=== PATIENT | male | born 1980 | race Caucasian/White ===

== ENCOUNTER 2018-10-11 15:44 | Emergency (ER) | payer OTHER, SELFPAY ==
[2018-10-11 16:00] VITALS: BP 106/69; PULSE 67; RESP 18; TEMP 36.6; O2SAT 97; BMI 21.7
--- NOTE | 2018-10-11 16:11 | DI.CT.S_ITS ---
PROCEDURE: CT HEAD/BRAIN WO CON INDICATIONS: blunt injury to forehead, c/o headaches and laceration TECHNIQUE: Noncontrast 4.5 mm thick angled axial sections acquired from the foramen magnum to the vertex, with coronal and sagittal reformats. For radiation dose reduction, the following was used: automated exposure control, adjustment of mA and/or kV according to patient size. COMPARISON: None. FINDINGS: Image quality: Excellent. CSF spaces: Basal cisterns are patent. No extra-axial fluid collections. Ventricles are normal in size and shape. Brain: No midline shift. No intracranial masses or hemorrhage. De [place]-white matter interface is normal. Skull and face: Calvarium and visualized facial bones are intact, without suspicious lesions. No acute fracture. Minimal superficial scalp contusion involving the forehead, slightly right of midline. Sinuses: Visualized sinuses and mastoids are clear. IMPRESSION: CT head without acute intracranial abnormalities or calvarial fractures. Dictated by: Doug Gilman M.D. on 10/11/2018 at 16:45 Approved by: Doug Gilman M.D. on 10/11/2018 at 16:46
--- NOTE | 2018-10-11 16:15 | ED_ITS ---
HPI - Head Injury General Chief complaint: Head Injury Stated complaint: LACERATION OF THE HEAD Time Seen by Provider: 10/11/18 16:09 Source: patient Mode of arrival: ambulatory Limitations: no limitations History of Present Illness HPI Narrative: This patient was working on a project at home. He was using a table saw, without the guard in place for the blade. A 2-1/2 inch block of wood flew off the saw blade after the cut, striking him in the forehead. Has a forehead laceration. He denies visual changes. He denies injuries to the eyes, nose or mouth. He had no altered mental status or LOC. He has had no bleeding from the ears, nose or mouth. He has no neck pain. He has bandaged the site, himself. There is no current bleeding. His last tetanus is up-to-date. He is healthy without chronic medical problems. Related Data Previous Rx's Medication Instructions Recorded citalopram 20 mg PO QDAY #90 tab 12/31/16 Allergies Allergy/AdvReac Type Severity Reaction Status Date / Time No Known Allergies Allergy Uncoded 10/11/18 16:11 Review of Systems Review of Systems ROS Unobtainable: All systems reviewed & are unremarkable except as noted in HPI and below Constitutional Denies chills, Denies lethargy and Denies weakness Eyes Denies change in vision, Denies eye discharge, Denies irritation and Denies loss of vision ENT Ears, Nose, Mouth, and Throat: Denies change in voice, Denies vertigo, Denies dizziness, Denies neck pain and Denies sore throat Musculoskeletal Denies neck pain Integumentary/Breasts Reports as per HPI, Denies erythema, Denies rash and Reports wounds Neurologic Denies vertigo, Denies dizziness, Denies loss of vision and Denies weakness PFSH Medical History No acute medical problems (Acute) No significant past surgical history (Acute) Social History Smoking Status: Never smoker Social History Smoking Status: Never smoker Exam Initial Vital Signs Initial Vital Signs: Vital Signs Temperature 97.9 F 10/11/18 16:00 Pulse Rate 67 10/11/18 16:00 Respiratory Rate 18 10/11/18 16:00 Blood Pressure 106/69 10/11/18 16:00 Pulse Oximetry 97 10/11/18 16:00 Const General: cooperative and well developed Nutritional Appearance: well nourished Orientation: alert, awake, oriented x3 and not confused [facility] Head: normocephalic, laceration (1.5 centimeter Vertical right forehead laceration, no foreign bodies. ), scalp tenderness and other (Laceration penetrates through to the skull. No bony injury.) Ears: external ears normal and TM's normal bilaterally Nose: external nose normal and No nasal discharge Face and sinus: face symmetric and No dry mucous membranes Mouth: oral mucosae normal and moist mucous membranes Teeth and gingiva: dentition normal Throat: tonsils normal and uvula midline Psych Appearance: grossly normal and well kempt Mental Status: mental status grossly normal Procedures Laceration Repair Laceration 1: Site: scalp Side (If applicable): right Size (cm): 1.5 Description: linear Depth: simple, single layer Local Anesthetic: lidocaine 2% Amount of anesthesia used (mL): 2.5 Pre-repair: wound explored and irrigated extensively Skin layer closed with: nylon Size (cm): 5-0 Technique: simple, interrupted Course Orders Ordered: ED Orders 10/11/18 16:11 CT head/brain wo con Stat Discontinued Medications Acetaminophen (Tylenol) 975 mg PO NOW ONE Stop: 10/11/18 16:55 Last Admin: 10/11/18 16:56 Dose: 975 mg Vital Signs - 8 hr 10/11/18 16:00 10/11/18 18:16 Temperature 97.9 F Pulse Rate 67 56 L Respiratory Rate 18 12 Blood Pressure 106/69 115/69 Pulse Oximetry 97 98 MDM - Head Injury Imaging Data CT scan - head: Radiologist's impression: [address] [address] [address] Scan Report Signed Patient: Everett Jarvis#: [id number] : 1980Acct:[id number] Age/Sex: 38 / MDate of Service: 10/11/18 Loc: ED Accession Number: [id number] Procedure: CT head/brain wo con Ordering Provider: Josesito Hunter M.D. PROCEDURE: CT HEAD/BRAIN WO CON INDICATIONS: blunt injury to forehead, c/o headaches and laceration TECHNIQUE: Noncontrast 4.5 mm thick angled axial sections acquired from the foramen magnum to the vertex, with coronal and sagittal reformats. For radiation dose reduction, the following was used: automated exposure control, adjustment of mA and/or kV according to patient size. COMPARISON: None. FINDINGS: Image quality: Excellent. CSF spaces: Basal cisterns are patent. No extra-axial fluid collections. Ventricles are normal in size and shape. Brain: No midline shift. No intracranial masses or hemorrhage. [place]-white matter interface is normal. Skull and face: Calvarium and visualized facial bones are intact, without suspicious lesions. No acute fracture. Minimal superficial scalp contusion involving the forehead, slightly right of midline. Sinuses: Visualized sinuses and mastoids are clear. IMPRESSION: CT head without acute intracranial abnormalities or calvarial fractures. Dictated by: Doug Gilman M.D. on 10/11/2018 at 16:45 Approved by: Doug Gilman M.D. on 10/11/2018 at 16:46 Discharge Plan Departure Patient Disposition: Home Clinical Impression: Forehead laceration Qualifiers: Encounter type: initial encounter Qualified Code(s): S01.81XA - Laceration without foreign body of other part of head, initial encounter Discharge Date/Time: 10/11/18 18:16 Interventions: ED Discharge Assessment Last Done: 10/11/18 18:16 Instructions: DI for Laceration Repair Activity Restrictions/Additional Instructions: Keep the bandage in place until tomorrow. At the bandage comes off he may shower, bathe normally. Take Tylenol or Advil as needed for pain. Follow-up with her doctor in 1 week for suture removal. Return to ER as needed. Prescriptions: No Action citalopram 20 MG tablet 20 mg PO QDAY Qty: 90 RF: 3 Referrals: Krystian Nava MD [Primary Care Provider] - Stand Alone Forms: Work Release Note
[2018-10-11] MEDS: ACETAMINOPHEN 325 MG TABLET 975 MG PO (16:56)
[2018-10-11 18:16] VITALS: BP 115/69; PULSE 56; RESP 12; O2SAT 98
== END 2018-10-11 18:16 | disposition home or self-care (01) ==
PROVIDERS: Emergency Provider Emergency Medicine; PCP Family Medicine
DX: S01.01XA Laceration without foreign body of scalp, initial encounter (principal); W31.2XXA Contact with powered woodworking and forming machines, initial encounter; Y92.009 Unspecified place in unspecified non-institutional (private) residence as the place of occurrence of the external cause
CPT/HCPCS: 12001; 70450; 99283; 99284

== ENCOUNTER → 2021-05-03 11:03 | Outpatient (CLI) | payer OTHER, SELFPAY ==
[2021-05-03 20:10] LABS: Add Manual Diff / Slide Review NO; Basophils Absolute Auto 0 /uL (0-100); Basophils Percent Auto 0.4 % (0-2); Eosinophils Absolute Auto 0 /uL (0-450); Eosinophils Percent Auto 0.6 % (2-4); Hematocrit 44.3 % (41-53); Hemoglobin 15.1 g/dL (13.5-17.5); Lymphocytes Absolute Auto 1200 /uL (1100-4500); Lymphocytes Percent Auto 22.6 % (25-40); Mean Corpuscular Hemoglobin 31.8 PG (26-34); Mean Corpuscular Volume 93.3 fL (80-100); Monocytes Absolute Auto 500 /uL (0-900); Monocytes Percent Auto 10.6 % (3-14); Neutrophils Absolute Auto 3400 /uL (1500-7000); Neutrophils Percent Auto 65.8 % (50-75); Platelet Count 306 X10^3/uL (150-400); Red Blood Cell Count 4.75 X10^6/uL (4.5-5.9); Red Cell Distribution Width 12.8 % (11.6-14.8); White Blood Cell Count 5.1 X10^3/uL (4.5-11.0)
[2021-05-03 20:12] LABS: Alanine Aminotransferase 19 IU/L (<50); Albumin 4.5 g/dL (3.5-5.0); Albumin Globulin Ratio 1.6 (1.0-2.8); Alkaline Phosphatase 60 U/L (38-126); Aspartate Aminotransferase 34 IU/L (17-59); BUN Creatinine Ratio 10.5 (6-22); Bilirubin Total 0.8 mg/dL (0.2-1.3); Blood Urea Nitrogen 8 mg/dL (9-20); Calcium 9.6 mg/dL (8.4-10.2); Carbon Dioxide 34 mmol/L (22-32); Chloride 103 mmol/L (98-107); Estimated Glomerular Filt Rate > 60.0 mL/min (>60); Globulin 2.9 g/dL (1.7-4.1); Glucose 91 mg/dL (70-100); HEMOLYSIS < 15 (0-50); Potassium 4.6 mmol/L (3.4-5.1); Sodium 141 mmol/L (137-145); Total Protein 7.4 g/dL (6.3-8.2)
[2021-05-03 20:24] LABS: Rheumatoid Factor < 8.6 IU/mL (<12.0)
[2021-05-03 20:38] LABS: Erythrocyte Sedimentation Rate 3 MM/HR (0-15)
[2021-05-03 20:42] LABS: TSH w/ Reflex to FT4 1.24 uIU/mL (0.47-4.68)
== END ==
PROVIDERS: PCP Family Medicine; Visit Provider Family Medicine
DX: Q87.40 Marfan syndrome, unspecified (principal); M19.90 Unspecified osteoarthritis, unspecified site
CPT/HCPCS: 80053; 84443; 85025; 85651; 86430

== ENCOUNTER → 2021-08-27 08:41 | Outpatient (CLI) | payer OTHER, SELFPAY ==
[2021-08-28] LABS: COVID19 - ORCAS (NP or Nasal) POSITIVE (Negative)
== END ==
PROVIDERS: PCP Family Medicine; Referring Provider Physician Assistant; Visit Provider Physician Assistant
DX: U07.1 COVID-19 (principal); Z20.822 Contact with and (suspected) exposure to COVID-19
CPT/HCPCS: U0003

== ENCOUNTER → 2022-10-09 15:55 | Outpatient (CLI) | payer OTHER, SELFPAY | PROVIDERS: PCP Physician Assistant Medical; Visit Provider Physician Assistant Medical | DX: N50.819 Testicular pain, unspecified (principal) | CPT/HCPCS: 87086; 87491; 87563; 87591; 87798 ==

== ENCOUNTER 2022-10-12 00:46 | Emergency (ER) | payer OTHER, SELFPAY ==
[2022-10-12 01:04] VITALS: BP 132/81; PULSE 63; RESP 14; TEMP 36.7; O2SAT 98; BMI 22.4
--- NOTE | 2022-10-12 01:12 | DI.US.S_ITS ---
PROCEDURE: US SCROTUM INDICATIONS: TESTICULAR PAIN TECHNIQUE: Real-time scanning was performed of the scrotum and testicles, with image documentation. Color and pulse Doppler interrogation was performed of both testicles. COMPARISON: None. FINDINGS: Right: Testicle is normal in size at 3.6 x 2.5 x 3.2 cm, and homogenous in echotexture. Epididymis is normal in overall size and morphology. No varicoceles. Mild hydrocele. Overlying scrotal skin is normal in thickness. Left: Testicle is normal in size at 3.8 x 2.2 x 3.2 cm, and homogeneous in echotexture. Epididymis is normal in overall size and morphology. No varicoceles. Mild hydrocele. Overlying scrotal skin is normal in thickness. Doppler: Color and pulse Doppler demonstrate normal and symmetric arterial flow in both testicles. IMPRESSION: No testicular torsion at time of exam. Intermittent torsion cannot be excluded. Bilateral hydroceles. The above findings are concordant with preliminary report. Dictated by: Cecilia Lainez M.D. on 10/12/2022 at 8:04 Approved by: Cecilia Lainez M.D. on 10/12/2022 at 8:04
--- NOTE | 2022-10-12 01:12 | ED_ITS ---
HPI - Male Genitourinary General Chief complaint: Urogenital-Male Stated complaint: testicular pain Lt. Time Seen by Provider: 10/12/22 00:54 Source: patient Mode of arrival: Ambulatory History of Present Illness HPI Narrative: 42-year-old male nonsmoker with noncontributory chronic medical history presents for evaluation of episodic left testicle pain which has been occurring off and on for about the past month. He denies any trauma or injury and has no difficulty with urination. He is sexually active. He denies any systemic complaints such as fever, chills nor nausea or vomiting. He had been seen by his primary care provider earlier in the week and was started on ciprofloxacin to treat presumed epididymitis. Related Data Previous Rx's Medication Instructions Recorded ciprofloxacin HCl 500 mg tablet 500 mg PO BID #14 tabs 10/09/22 (Cipro) Allergies Allergy/AdvReac Type Severity Reaction Status Date / Time No Known Allergies Allergy Uncoded 10/11/18 16:11 Review of Systems Review of Systems Narrative: GENERAL: Denies chills, fatigue, malaise, fever, sweats. HEENT: Denies sinus pain, ear pain, sore throat, difficulty swallowing, dizziness. RESPIRATORY: Denies dyspnea, cough, wheezing, hemoptysis, sputum. CARDIOVASCULAR: Denies chest pain, palpitations, orthopnea, edema, GASTROINTESTINAL: Denies nausea, vomiting, abdominal pain, diarrhea, constipation, melena. : See HPI MUSCULOSKELETAL: denies weakness, joint pain, or bony pain SKIN: Denies rash, skin lesions, or other NEUROLOGIC: Denies weakness, headache, numbness, change in speech, confusion, seizures, incoordination. PSYCHIATRIC: No concerning psychosocial issues. 12 point review of systems is negative except for those stated above Patient History Medical History Arthritis Encounter for general adult medical examination w/o abnormal findings No acute medical problems Shoulder pain (~2019) Surgical History Anesthesia No significant past surgical history S/P arthroscopic surgery of left knee (~1998) S/P arthroscopic surgery of right knee Family History Father Kidney failure Social History Smoking Status: Never smoker Smoking Status: Never smoker alcohol intake frequency: 0-2 drinks per day Substance Use Type: marijuana Exam Narrative Exam Narrative: GEN: AOx3 and in mild distress EYES: Pupils are equal, round, and reactive to light and accommodation. Extraoccular muscles are intact bilaterally. There is no subconjunctival hemorrhage or exudate. CHEST: Lungs are clear to auscultation bilaterally and free of wheezes, rales, or rhonchi. Heart rate is regular rhythm, there are no murmurs, clicks, rubs, or gallops. There is no chest wall tenderness. ABD: Abdomen is soft and nontender. There is no guarding or rebound. Bowel sounds are normal in all 4 quadrants. There is no mass or organomegaly. : Patient examined in standing position, no testicular pain swelling, no scrotal erythema, warmth, induration or induration EXT: Full painless ROM of all extremities with no loss of sensation or strength. SKIN: Warm, pink, and dry. No erythema or rash Initial Vital Signs Initial Vital Signs: Vital Signs Temperature 98.1 F 10/12/22 01:04 Pulse Rate 63 10/12/22 01:04 Respiratory Rate 14 10/12/22 01:04 Blood Pressure 132/81 10/12/22 01:04 Pulse Oximetry 98 10/12/22 01:04 Oxygen Delivery Method Room Air 10/12/22 01:04 Course Orders Ordered: ED Orders 10/12/22 01:12 US scrotum Stat 10/12/22 01:15 Chlamydia Gonorrhea PCR -URINE Stat Urinalysis and Microscopic Stat Vital Signs Vital signs: Vital Signs - 8 hr 10/12/22 01:04 10/12/22 02:28 Temperature 98.1 F Pulse Rate 63 62 Respiratory Rate 14 17 Blood Pressure 132/81 119/60 Pulse Oximetry 98 98 Oxygen Delivery Method Room Air Room Air MDM - Male Genitourinary Lab Data Labs: Lab Results 10/12/22 10/12/22 Range/Units 01:15 01:15 Urine Color Yellow Urine Appearance Clear Urine pH 6.5 (4.5-8.0) Ur Specific [place] 1.010 (1.000-1.035) Urine Protein Negative (Negative) Urine Glucose (UA) Negative (Negative) g/dL Urine Ketones Negative (NEGATIVE) Urine Occult Blood Negative (Negative) Urine Nitrate Negative (Negative) Urine Bilirubin Negative (NEGATIVE) Urine Urobilinogen 0.2 (0.2) E.U./dL Ur Leukocyte Esterase Negative (NEGATIVE) Urine RBC None seen (0-5/HPF) Urine WBC None seen (0-5/HPF) Amorphous Sediment 1+ Urine Bacteria None seen (None) Ur Culture Indicated? Cult not indicated Ur Chlamydia DNA (PCR) Not detected N gonorrhoeae DNA (PCR) Not detected Urine Dip Bedside Urine Glucose Negative Bedside Urine Bilirubin - Negative Bedside Urine Ketone - Negative Urine Specific [place] 1.015 Bedside Urine Occult Blood - Negative Bedside Urine pH 7.0 Bedside Urine Protein - Negative Bedside Urine Urobilinogen - Negative Bedside Urine Nitrite - Negative Bedside Urine Leukocytes - Negative Esterase Imaging Data Scrotal US: Radiologist's Impression: No evidence of torsion, mild hydrocele bilateral MDM Narrative Medical decision making narrative: [42] year old patient presents with L testicle pain Multiple etiologies for patient's symptoms considered including, but not limited to: [torsion, epididymitis, hydrocele, vs. other] Prior Charts reviewed in our EMR Primary Historian: patient Labs reviewed and interpreted by myself: No evidence of UTI. Urine GC negative Imaging reviewed: no torsion, hydrocele Patient's symptoms improved over duration of stay with above-stated therapies. Findings and discharge diagnosis discussed with patient/family followed by verbalization of understanding Return precautions discussed with patient/family whom verbalize understanding of diagnosis and plan Discharge Plan Departure Patient Disposition: Home Clinical Impression: Hydrocele in adult Instructions: DI for Hydrocele-Adult Activity Restrictions/Additional Instructions: *You have been diagnosed with [acute left-sided hydrocele. No evidence of epididymitis or torsion] *What to do: *Please continue to take your regular medications as directed. *Please follow up with your primary care provider in 2-3 days, call for an appointment. Let them know you were seen in the Emergency Department and that we ask that you be seen in follow up. We will electronically transmit a record of today's note if your PCP is in our system * as we discussed, the majority of hydroceles do not require any intervention, however I have included contact information for [facility] here at [facility]. Please see their contact info below, call their office on Friday, let them know you were seen in the emergency department and we would like you seen in follow- up. I will electronically transmitted a copy of today's note *If you do not have a primary care provider please contact the [facility] Resource line at [phone]. They will ask some questions about your medical history and help get you set up with a doctor in the community. *Return to Emergency Department if you should have any new, worsening or concerning symptoms, such as [fever greater than 101 F, shaking chills, worsening pain, persistent vomiting or other bothersome symptoms] Prescriptions: No Action ciprofloxacin HCl [Cipro] 500 mg tablet 500 mg PO BID Qty: 14 0RF Referrals: Nohemy Gayle MD [Physician] - Josesito Lynn MD [Primary Care Provider] - Stand Alone Forms: Patient Portal/API
[2022-10-12 01:32] LABS: Appearance Urine UA CLEAR; Bilirubin Urine UA NEGATIVE (NEGATIVE); Color Urine UA YELLOW; Glucose Urine UA NEGATIVE (Negative); Ketones Urine UA NEGATIVE (NEGATIVE); Leukocyte Esterase Urine UA NEGATIVE (NEGATIVE); Nitrite Urine UA NEGATIVE (Negative); Occult Blood Urine UA NEGATIVE (Negative); Protein Urine UA NEGATIVE (Negative); Urobilinogen Urine UA 0.2 E.U./dL (0.2); pH Urine UA 6.5 (4.5-8.0)
[2022-10-12 01:37] LABS: Amorphous Sediment Urine 1+; Bacteria Urine None Seen; Culture Indicated Urine Cult Not Indicated; RBC Urine None Seen (0-5/HPF); WBC Urine None Seen (0-5/HPF)
[2022-10-12 02:28] VITALS: BP 119/60; PULSE 62; RESP 17; O2SAT 98
[2022-10-12 03:00] LABS: Urine N gonorrhoeae NOT DETECTED
[2022-10-12 03:02] LABS: Urine Chlamydia NOT DETECTED
== END 2022-10-12 02:29 | disposition home or self-care (01) ==
PROVIDERS: Emergency Provider Emergency Medicine; PCP Family Medicine
DX: N43.3 Hydrocele, unspecified (principal)
CPT/HCPCS: 76870; 81001; 81003; 87491; 87591; 99282; 99283

== ENCOUNTER → 2023-07-02 09:02 | Outpatient (CLI) | payer OTHER, SELFPAY ==
[2023-07-02 20:20] LABS: Urine N gonorrhoeae NOT DETECTED
[2023-07-02 20:23] LABS: Urine Chlamydia NOT DETECTED
== END ==
PROVIDERS: PCP Family Medicine; Visit Provider Physician Assistant
DX: Z11.3 Encounter for screening for infections with a predominantly sexual mode of transmission (principal)
CPT/HCPCS: 87491; 87591

== ENCOUNTER → 2023-10-22 09:37 | Outpatient (CLI) | payer OTHER, SELFPAY ==
[2023-10-23 19:59] LABS: HIV 1 & 2 Ab/Ag 4th Gen Combo NEGATIVE (NEGATIVE); Hep C Virus Ab w/Reflex Quant NEGATIVE s/c (NEGATIVE); Hepatitis B Surface Antigen NEGATIVE s/c (NEGATIVE)
[2023-10-24 02:12] LABS: HSV 2 IGG AB < 0.91 index (0.00-0.90); HSV1IGG < 0.91 index (0.00-0.90)
[2023-10-24 03:36] LABS: RPR Screen Non Reactive (Non Reactive)
== END ==
PROVIDERS: PCP Family Medicine; Referring Provider Physician Assistant; Visit Provider Physician Assistant
DX: Z11.3 Encounter for screening for infections with a predominantly sexual mode of transmission (principal)
CPT/HCPCS: 36415; 86592; 86695; 86696; 86803; 87340; 87389

== ENCOUNTER → 2025-07-21 15:25 | Outpatient (CLI) | payer OTHER, SELFPAY ==
[2025-07-21 23:55] LABS: Urine N gonorrhoeae NOT DETECTED
[2025-07-21 23:57] LABS: Urine Chlamydia NOT DETECTED
== END ==
PROVIDERS: PCP Family Medicine; Visit Provider Physician Assistant Medical
DX: Z11.3 Encounter for screening for infections with a predominantly sexual mode of transmission (principal)
CPT/HCPCS: 87491; 87591